=== PATIENT | male | born 1990 | race Hispanic/Latino ===

== ENCOUNTER 2020-10-29 23:21 | Emergency (ER) | payer SELFPAY ==
[2020-10-29] MEDS ORDERED: Acetaminophen/HYDROcodone 325-5 MG Tab PO ONE (23:52)
--- NOTE | 2020-10-29 23:55 | EDM.PDOC ---
ED HPI GENERAL MEDICAL PROBLEM - General Chief Complaint: Upper Extremity Injury/Pain Stated Complaint: POSS HAND INJURY Time Seen by Provider: 10/29/20 23:45 Source of Information: Reports: Patient, Family () History Limitations: Reports: Language Barrier (The patient speaks some [place] Of [place], but his helped with Uzbek interpretaton) - History of Present Illness INITIAL COMMENTS - FREE TEXT/NARRATIVE: Mr. Garcia is a very pleasant 30-year-old gentleman who now presents the ED after his right hand and wrist got crushed when a 60 pound pipe that he was working with at home fell, around 18:00 this evening. He is otherwise uninjured. No prior right hand/wrist injury. The patient states that he took 3 tablets of aspirin 325 mg around 18:30 to 19:00. An ice pack was applied to his hand and wrist here in the ED. Here in the ED, the patient's initial BP is found to be slightly elevated at 144/98, otherwise, he is hemodynamically stable, afebrile, saturating 99% on room air. He appears to be relatively comfortable, in no acute distress. Prior to this evening, the patient denies having a recent fever, chills, sore throat, ear pain, nasal or sinus congestion, cough, dyspnea, chest pain, palpitations, nausea, vomiting, constipation, diarrhea, abdominal pain, urinary symptoms, recent weight gain or weight loss, recent bloody bowel movements or black bowel movements, recent joint aches, headaches, or rashes. The patient does not have a PCP. 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 [No Known Home Meds] 10/29/20 [History] Past Medical History - Past Surgical History Musculoskeletal Surgical History: Reports: ORIF (right foot) Social & Family History - Tobacco Use Tobacco Use Status *Q: Never Tobacco User Second Hand Smoke Exposure: No - Caffeine Use Caffeine Use: Reports: None - Alcohol Use Alcohol Use History: Yes Alcohol Use Frequency: Socially - Recreational Drug Use Recreational Drug Use: No - Living Situation & Occupation Living situation: Reports: , with Spouse, with Family (2 kids) Occupation: Employed ([employer]) Review of Systems - Review of Systems Review Of Systems: Comprehensive ROS is negative, except as noted in HPI. ED EXAM, GENERAL - Physical Exam Exam: See Below Exam Limited By: No Limitations General Appearance: Alert, WD/WN, No Apparent Distress Extremities: Other (There is an abrasion to the dorsal aspect of the right wrist, and the dorsal aspect of the hand and wrist are somewhat swollen. Normal sensation to the fingers, and the patient is able to flex and extend his hand with pain, although good strength.) Course - Vital Signs Last Recorded V/S: Last Vital Signs Temp 36.7 C 10/29/20 23:34 Pulse 85 10/29/20 23:34 Resp 18 10/29/20 23:34 BP 144/98 H 10/29/20 23:34 Pulse Ox 99 10/29/20 23:34 - Orders/Labs/Meds Orders: Active Orders 24 hr Category Date Time Status Hand Comp Min 3V Rt [CR] Stat Exams 10/29/20 23:52 Taken Meds: Medications Discontinued Medications Generic Name Dose Route Start Last Admin Trade Name Cali PRN Reason Stop Dose Admin Hydrocodone Bitart/Acetaminophen 2 tab 10/29/20 23:52 10/29/20 23:59 Acetaminophen/Hydrocodone 325-5 Mg Tab PO 10/29/20 23:53 2 tab ONETIME ONE Administration - Re-Assessments/Exams Free Text/Narrative Re-Assessment/Exam: 10/29/20 23:53 As above, the patient's right hand and wrist were crushed when a 60 pound pipe fell on it around 1800 this evening. He has an abrasion to the dorsal aspect of his right wrist, and the dorsal aspect of his hand and wrist are somewhat swollen. Normal sensation, and no suggestion of a tendon injury. I have ordered x-rays of the right hand, to include the wrist. In the meantime, the patient will be given 2 tablets of Maben. 10/30/20 00:19 3 have reviewed radiographs of the right hand, that includes the wrist, appear to be grossly normal, with no fractures or dislocations identified. Formal read per the Radiologist pending. 10/30/20 00:22 X-ray results discussed with the patient and his . As above, the x-rays are negative for fracture. He appears to have a contusion or soft tissue injury to the dorsal aspect of his wrist and hand. I am recommending that he ice and elevate his right hand and wrist as much as possible over the next few days, and take OTC ibuprofen as needed for discomfort. I will write a note for the patient to be off work until Sunday. Departure - Departure Time of Disposition: 00:22 Disposition: Home, Self-Care 01 Condition: Good Clinical Impression: Contusion of right hand, Contusion of right wrist - Discharge Information *PRESCRIPTION DRUG MONITORING PROGRAM REVIEWED*: Not Applicable *COPY OF PRESCRIPTION DRUG MONITORING REPORT IN PATIENT MICHAEL: Not Applicable Referrals: PCP,None [Primary Care Provider] - Forms: ED Department Discharge, ED Return to Work/School Form Additional Instructions: You were seen in the emergency room after your right hand and wrist got crushed by a 60 pound pipe this evening. Work-up in the ER included x-rays of your right hand and wrist, which found no broken bones or dislocations. Based on your history, physical exam, and ER x-rays, you have contused (bruised) your right hand and wrist. We recommend that you ice and elevate your right hand and wrist as much as possible over the next few days, to help minimize swelling. We recommend you take [id number] ibuprofen, 3 tablets (600 mg) up to every 8 hours, with food, as needed for discomfort. A note to be off work until 11/01/2020 has been provided. If any other problems, please do not hesitate to return to the ER. Sepsis Event Note (ED) - Evaluation Sepsis Screening Result: No Definite Risk - Focused Exam Vital Signs: Vital Signs Temp Pulse Resp BP Pulse Ox 10/29/20 23:34 36.7 C 85 18 144/98 H 99 - My Orders Last 24 Hours: My Active Orders 10/29/20 23:52 Hand Comp Min 3V Rt [CR] Stat - Assessment/Plan Last 24 Hours: My Active Orders 10/29/20 23:52 Hand Comp Min 3V Rt [CR] Stat
--- NOTE | 2020-10-30 09:31 | CR ---
Right hand: 3 views of the right hand were obtained. Comparison: No previous hand study is available. Soft tissue swelling is identified. No acute fracture, dislocation or other bony abnormality is appreciated. Impression: 1. Soft tissue swelling. 2. No acute osseous abnormality is appreciated on right hand study. Diagnostic code #2
== END 2020-10-30 00:30 | disposition home or self-care (01) ==
LOC: JD.ED 23:21
DX: S60.211A Contusion of right wrist, initial encounter (principal); S60.221A Contusion of right hand, initial encounter; W23.0XXA Caught, crushed, jammed, or pinched between moving objects, initial encounter
CPT/HCPCS: 73130; 99283; A9270